=== PATIENT | female | born 1990 | race Two or more races ===

== ENCOUNTER 2021-09-04 11:52 | Emergency (ER) | payer MEDICAID ==
[~2021-09-04] VITALS: Ht 157.5 cm; Wt 57.0 kg
[2021-09-04] MEDS ORDERED: ACETAMINOPHEN 325MG TABLET PO ONE (13:00)
[2021-09-04] MEDS ORDERED: IBUPROFEN 400MG TABLET PO ONE (13:00)
[2021-09-04 13:34] VITALS: BP 118/65
== END 2021-09-04 14:08 | disposition home or self-care (01) ==
LOC: ER 12:04
DX: S46.912A Strain of unspecified muscle, fascia and tendon at shoulder and upper arm level, left arm, initial encounter (principal); X58.XXXA Exposure to other specified factors, initial encounter; Y93.9 Activity, unspecified; Y92.9 Unspecified place or not applicable
CPT/HCPCS: 73030; 99283

== ENCOUNTER 2023-07-15 10:19 | Emergency (ER) | payer MEDICAID ==
[~2023-07-15] VITALS: Ht 152.4 cm; Wt 66.0 kg
[2023-07-15 10:31] VITALS: O2SAT 99
[2023-07-15] MEDS ORDERED: BACITRACIN ZINC OINT UDPKT TOP ONE (11:15)
[2023-07-15] MEDS ORDERED: BO1 TP (11:36)
[2023-07-15 11:51] VITALS: BP 132/56; PULSE 82; RESP 16; TEMP 98.2
== END 2023-07-15 11:52 | disposition home or self-care (01) ==
LOC: ER 10:19
DX: O26.892 Other specified pregnancy related conditions, second trimester (principal); T30.0 Burn of unspecified body region, unspecified degree; T79.9XXA Unspecified early complication of trauma, initial encounter; X08.8XXA Exposure to other specified smoke, fire and flames, initial encounter; Y93.89 Activity, other specified; Y92.89 Other specified places as the place of occurrence of the external cause; Y99.8 Other external cause status; Z3A.17 17 weeks gestation of pregnancy
CPT/HCPCS: 99282